=== PATIENT | female | born 1945 | race Caucasian/White ===

== ENCOUNTER 2018-11-13 21:27 | Emergency (ER) | payer MEDICARE, BC ==
[~2018-11-13] VITALS: Ht 157.5 cm; Wt 61.4 kg
[2018-11-13 21:54] LABS: GLUCOSE,POINT OF CARE 164 MG/DL (70-110)
[2018-11-13] MEDS ORDERED: GLIM2 PO (21:55)
[2018-11-13] MEDS ORDERED: METO25XL PO (21:55)
[2018-11-13] MEDS ORDERED: DENO60DI SQ (21:55)
[2018-11-13] MEDS ORDERED: LEVO125 PO (21:55)
[2018-11-13] MEDS ORDERED: SITA100 PO (21:55)
[2018-11-13] MEDS ORDERED: ASPI-556 PO (21:55)
[2018-11-13] MEDS ORDERED: TURM1POW PO (21:55)
[2018-11-13] MEDS ORDERED: METF-960 PO (21:55)
[2018-11-13] MEDS ORDERED: ONDANSETRON HCL 4 MG/2 ML VIAL IVP ONE (22:45)
[2018-11-13 23:04] LABS: HEMOGLOBIN 11.1 g/dL (12.0-16.0); LYMPHOCYTES # (AUTO) 3.1 K/uL (1.0-4.8); MONOCYTES # (AUTO) 0.6 K/uL (0.1-1.0)
[2018-11-13 23:08] LABS: BASOPHILS % (AUTO) 1.4 % (0.0-2.0); EOSINOPHILS % (AUTO) 3.4 % (1.0-6.0); HEMATOCRIT 34.1 % (36-46); LYMPHOCYTES % (AUTO) 36.3 % (22.0-44.0); MEAN CORPUSCULAR HEMOGLOBIN 29.1 pg (26.0-34.0); MEAN CORPUSCULAR HGB CONC 32.7 G/dL (31.0-37.0); MEAN CORPUSCULAR VOLUME 89 fL (80-100); MONOCYTES % (AUTO) 7.3 % (2.0-9.0); NEUTROPHILS # (AUTO) 4.3 K/uL (1.8-7.7); NEUTROPHILS % (AUTO) 51.6 % (40.0-70.0); RED BLOOD CELL COUNT(AUTO) 3.83 MIL/uL (4.00-5.20); RED CELL DISTRIBUTION WIDTH 15.2 % (11.5-14.5)
[2018-11-13 23:13] LABS: CALCIUM, TOTAL 9.1 mg/dL (8.8-10.5); CREATININE 1.05 mg/dL (0.60-1.30); POTASSIUM 4.2 mmol/L (3.5-5.1)
[2018-11-13] MEDS ORDERED: KETOROLAC TROMETHAMINE 30 MG/ML VIAL IVP ONE (23:15)
[2018-11-13 23:18] LABS: ALBUMIN 3.1 g/dL (3.4-5.0); BILIRUBIN,TOTAL 0.3 mg/dL (0.1-1.0); TOTAL PROTEIN, SERUM 7.3 g/dL (6.4-8.2)
[2018-11-13 23:33] LABS: PLATELET COUNT (AUTO) 190 K/uL (150-450)
[2018-11-13] MEDS ORDERED: IOVERSOL 350 MG/ML 100 ML VIAL ONE (23:34)
[2018-11-13] MEDS ORDERED: SODIUM CHLORIDE 0.9% 100 ML ONE (23:34)
[2018-11-14 00:51] LABS: APPEARANCE,URINE CLEAR (CLEAR); BILIRUBIN,URINE NEGATIVE (NEGATIVE); GLUCOSE, URINE (UA) NEGATIVE (NEGATIVE); KETONES,URINE NEGATIVE (NEGATIVE); LEUKOCYTE ESTERASE ,URINE NEGATIVE (NEGATIVE); NITRATE,URINE NEGATIVE (NEGATIVE); OCCULT BLOOD,URINE NEGATIVE (NEGATIVE); PH,URINE 7.5 (5.0-8.0); PROTEIN,URINE NEGATIVE (NEGATIVE); UROBILINOGEN,URINE 0.2 mg/dL (<=1.0)
[2018-11-14 01:09] VITALS: BP 135/71
== END 2018-11-14 01:28 | disposition home or self-care (01) ==
LOC: EMS 21:34
DX: R10.84 Generalized abdominal pain (principal); R91.1 Solitary pulmonary nodule; N94.89 Other specified conditions associated with female genital organs and menstrual cycle; E11.9 Type 2 diabetes mellitus without complications; I48.91 Unspecified atrial fibrillation; Z88.1 Allergy status to other antibiotic agents; Z88.5 Allergy status to narcotic agent; Z88.2 Allergy status to sulfonamides; Z79.84 Long term (current) use of oral hypoglycemic drugs; Z79.899 Other long term (current) drug therapy
CPT/HCPCS: 36415; 73030; 74177; 80053; 81003; 82962; 83690; 84484; 85025; 93005; 96374; 96375; 99284; J1885; J2405; J7050; Q9967